=== PATIENT | female | born 1980 | race Asian ===

== ENCOUNTER 2018-03-08 11:53 | Emergency (ER) | payer OTHER ==
[~2018-03-08] VITALS: Ht 170.2 cm; Wt 91.2 kg
[2018-03-08 11:56] VITALS: Ht 170.2 cm; Wt 91.2 kg
[2018-03-08 15:05] VITALS: BP 143/74
== END 2018-03-08 15:05 | disposition home or self-care (01) ==
LOC: ED 11:53
DX: S06.0X0A Concussion without loss of consciousness, initial encounter (principal); E11.9 Type 2 diabetes mellitus without complications; Z88.5 Allergy status to narcotic agent; Y04.8XXA Assault by other bodily force, initial encounter; Y93.89 Activity, other specified; Y92.89 Other specified places as the place of occurrence of the external cause; Y99.8 Other external cause status
CPT/HCPCS: J1885; J2765; J7030